=== PATIENT | male | born 1950 | race Caucasian/White ===

== ENCOUNTER 2024-11-14 23:00 | Observation (INO) | payer MEDICARE, SELFPAY ==
[2024-11-14 21:13] VITALS: BP 144/81
[2024-11-14 21:27] LABS: Hematocrit 39.4 % (39.0-52.0); Hemoglobin 13.7 g/dL (13.0-18.0); Mean Corp Hgb Conc. 34.8 g/dL (33.0-37.0); Mean Corpuscular Volume 90.6 fL (80.0-94.0); Nucleated Red Blood Cells % 0 % (-); Platelet Count 188 10^3/uL (130-400); Red Cell Dist. Width 11.9 % (11.5-14.5)
[2024-11-14 21:29] VITALS: BMI 28.6
[2024-11-14 21:33] VITALS: BP 129/78
[2024-11-14 21:47] LABS: ALT (SGPT) 34 U/L (0-50); AST (SGOT) 24 U/L (17-59); Albumin 4.0 g/dl (3.5-5.0); Alkaline Phosphatase 51 U/L (38-126); Blood Urea Nitrogen 14 mg/dl (9-20); Calcium 9.1 mg/dl (8.4-10.2); Carbon Dioxide 25 mmol/L (22-30); Chloride 104 mmol/L (98-107); Estimated Creatinine Clearance 89 ml/min; Glucose 121 mg/dl (70-99); Potassium 3.8 mmol/L (3.5-5.1); Sodium 138 mmol/L (135-145); Total Protein 6.3 g/dl (6.3-8.2); eGFR > 60.00
[2024-11-14 21:59] LABS: Troponin I < 0.012 ng/ml
[2024-11-14 22:00] VITALS: BP 139/83
--- NOTE | 2024-11-14 22:27 | ED.GENMED ---
History of Present Illness
General
Chief Complaint: Fainting/Passed Out
Source: patient, spouse and ambulance crew
Exam Limitations: none
Time Seen by Provider: 11/14/24 21:57
Nursing documentation reviewed up to this point in time: agreed with
History of Present Illness
History of Present Illness:
74-year-old male with a past medical history of hypertension, hyperlipidemia, CAD status post stent who presents to the emergency room via EMS accompanied by his for evaluation of syncope. Patient reports that he spent the day golfing and
admits that he was not drinking much fluid today; he then went to spend some time with friends and was drinking alcohol and even had some THC infused beverage. This evening while he was sitting he says he began to feel lightheaded and tired�'almost
like I had to go to sleep.' His says that he became very pale and diaphoretic and had witnessed syncope. He subsequently had at least 2 additional episodes 1 of which happened with positional change and says that they had to lowered him
down to the ground to prevent fall. EMS was called to the scene. Per EMS patient hypotensive on arrival in the 80s systolic. He apparently had multiple episodes on the way to the hospital. Since arrival here patient says that he is been feeling
well and is asymptomatic�he did receive approximately 300 cc of fluid from EMS prior to arrival. He did not and does not have any associated chest pain, shortness of breath, abdominal/flank pain, headache. Denies any other acute complaints. He
says he did have a similar episode about a year ago where he passed out and fell down and hit his head requiring stitches�at that time it was attributed to his blood pressure medication and his dose was decreased. He is from [place], currently
visiting here�his planning specialist is in [place]. He has a history of CAD status post stenting.
Review of Systems
Review of Systems
All Other Systems: ROS reviewed and negative except as documented in HPI and ROS
Constitutional: Denies fever
Respiratory: Denies cough or trouble breathing
Cardiac: Reports diaphoresis and syncope; Denies chest pain or palpitations
ABD/GI: Denies abdominal pain or nausea
: Denies flank pain
Musculoskeletal: Denies neck pain or back pain
Neurological: Reports dizzy; Denies headache
Phy Exam
Physical Exam
Physical Exam:
General: Awake, alert, oriented x3; no acute distress
Head: Normocephalic, atraumatic
Eyes: Conjunctiva normal, pupils equal round reactive to light bilaterally
Throat: Airway intact, handling secretions
Neck: Trachea midline, supple without meningismus
Lungs: Clear to auscultation bilaterally, no wheezing, rales, rhonchi
Heart: Regular rate and rhythm, no murmurs, gallops, or rubs appreciated
Abd: Soft, non distended, nontender, no palpable masses
Neuro: Cranial nerves grossly intact, speech fluid, motor and sensory grossly intact
Skin: Warm and dry
Extremities: No edema in extremities, equal pulses in all extremities
Scores
Heart Failure Risk
Heart Failure Risk Score: Not Applicable
Heart Score for Chest Pain Patients
STEMI patient?: Not applicable
Withdrawal Assessment of Alcohol
Withdrawal Assessment Completed?: Not applicable
Course
Orders/Labs/Results
Orders:
Orders
11/14/24 21:10
Electrocardiogram (*1) Urgent
Reason for Study: Chest Pain
EKG- Treatment ONCE
11/14/24 21:15
Alcohol Urgent
Complete Blood Count/With Diff Urgent
Comprehensive Metabolic Panel Urgent
Troponin I Urgent
11/14/24 22:02
Add On- LAB Urgent
Tests Added?: ETOH level
11/14/24 22:25
Orthostatic VS- Treatment ONCE
0.9% Sodium Chloride 1000 ml [Nss] 1,000 ml IV BOLUS
Abnormal Lab Results
11/14/24
21:15
WBC 12.3 H 10^3/uL
(4.8-10.8)
RBC 4.35 L 10^6/uL
(4.70-6.10)
MCH 31.5 H pg
(27.0-31.0)
Absolute Neuts (auto) 7.2 H 10^3/uL
(1.4-6.5)
Absolute Lymphs (auto) 3.7 H 10^3/uL
(1.2-3.4)
Absolute Monos (auto) 1.0 H 10^3/uL
(0.1-0.6)
Glucose 121 H mg/dl
(70-99)
11/14/24 21:15
11/14/24 21:15
Vital Signs
Initial and Last Documented VS:
Initial Vital Signs
Temp Pulse Resp BP Pulse Ox
36.6 C 78 18 144/81 95
11/14/24 21:13 11/14/24 21:13 11/14/24 21:13 11/14/24 21:13 11/14/24 21:13
Last Documented Vital Signs
Temp Pulse Resp BP Pulse Ox
36.6 C 80 18 139/83 97
11/14/24 21:13 11/14/24 22:15 11/14/24 21:13 11/14/24 22:00 11/14/24 22:15
MDM/Problems Addressed
Differential Diagnosis Includes:
Vasovagal syncope, dehydration/alcohol related, arrhythmia, valvular disease
MDM/Problems Addressed:
74-year-old male presents after multiple syncopal events as described above. He did have some associated hypotension which improved with some fluids from EMS. He feels well here in the ER. Vitals and exam as above. EKG shows sinus rhythm with
sinus arrhythmia, no ectopy, no Brugada, no QT prolongation, no delta wave, not acutely ischemic. Labs were sent off including CBC and CMP�CBC shows marginal leukocytosis, CMP no clinically significant abnormalities. Troponin undetectable.
Alcohol level 10. Suspect that this is likely combination of dehydration/alcohol use leading to repeated syncopal events however with multiple episodes, known cardiac history and associated hypotension I do think he should be observed
overnight�discussed case with hospitalist for admission.
Chronic conditions affecting care:
CAD
*Pulse Oximetry
SaO2: 97
Oxygen Mode of Delivery: Room air
Patient hypoxic: no (97%)
*EKG
Interpreted by ED Provider?: Yes
Heart Rate: 82
Rate: normal
Rhythm: sinus and sinus arrhythmia
[place]: normal axis
Interval: normal interval
QRS Pattern: normal QRS
Ischemia: no ischemia
*Critical Care Note
Total Time (30-74mins, 75-104mins- exclusive of procedures): Not Applicable
Data Reviewed
Source: patient, spouse and ambulance crew
Patient Management
Discussion with other providers: Hospitalist (Discussed with hospitalist)
Escalation/DeEscalation of care consider admission/obs:
Admission indicated
ED Attending Note
-
Portions of this chart may have been created with voice recognition software.� Occasional wrong word or��sound alike� substitutions may have occurred due to the inherent limitations of voice recognition software.
Discharge Plan
Departure
Patient Disposition: Admit
Date of Disposition: 11/14/24
Time of Disposition: 22:27
Admit to doctor: [facility]
Presentation/result/management discussed w/ accepting MD/DO: Hospitalist
Discharge Problem:
Syncope
Prescriptions:
No Action
lisinopril 10 mg Tablet
PO DAILY
Patient Comments:
pt is unsure of exact dose fo this med
aspirin 81 mg Tablet
81 mg PO DAILY
rosuvastatin 40 mg Tablet
PO DAILY
Patient Comments:
pt is unsure of exact dose
metoprolol tartrate 25 mg Tablet
PO
Patient Comments:
pt is unsure of exact dose and how often he takes this med
Repatha Syringe
SC .[id number]
Patient Comments:
unsure of exact med dose
ezetimibe [Zetia] 10 mg Tablet
PO DAILY
Patient Comments:
pt is unsure fo exact dose
Interventions
Interventions:
*Risk Screen - Suicide Last Done: 11/14/24 21:29
*General Assessment Last Done: 11/14/24 21:29
*Neglect/Abuse Screening Last Done: 11/14/24 21:29
*ED- Fall Risk Assessment Last Done: 11/14/24 21:29
*ED COVID-19 Vaccine History Last Done: 11/14/24 21:29
Discharge Date and Time
Print Language: SPANISH
[2024-11-14 22:48] VITALS: BP 138/93; BP 145/85; BP 156/98; PULSE 80; PULSE 85; PULSE 90
[2024-11-14] MEDS: NSS 1000 IV (22:54)
--- NOTE | 2024-11-14 22:54 | HPS.HSE ---
Family Physician
-
Family Physician:
Chief Complaint
-
Hypotension
History of Present Illness
74-year-old male came by EMS for reported syncopal episode x 3. It was reported he spent the day golfing was not drinking much fluid he then went out with some friends was drinking alcohol and had a THC infused beverage called Chris's remedy which
contains 10 mg of THC and 2 mg of CBD per shot he had 5 shots of this. It is noted to cause orthostatic hypotension. He reports feeling lightheaded and tired like he was going to go to sleep when he became pale diaphoretic and had witnessed
syncope by his with a total of 3 episodes. He also reports he had 4 ounce of vodka with ice he typically drinks 8 ounce vodka daily per EMS patient was hypotensive on arrival 80 systolic had multiple episodes of syncope on the way to the
hospital. He received 300 cc of IV fluid by EMS has current blood pressure of 139/83. Patient reports he is visiting from [place] he has past medical history of CAD/stent 2000, HTN, HLD, alcohol use disorder
Medical History
Past Medical History
Past Medical History: Reports Other
Additional Past Medical History:
CAD/stent 2000
HTN
HLD,
alcohol use disorder
Past Surgical History: Reports None and Other
Additional Past Surgical History:
Cardiac cath times 03/2000
Social History
Tobacco: Non-smoker
Alcohol: Daily (8 ounces of vodka daily with ice)
Personal:
Living: With Family ()
Employment: Retired
Family History
Family History: Not pertinent
Allergies / Home Medications
Allergies reflects when Allergies were last updated in [employer].
Home Medications with original date entered in [employer]
Allergy/Medication List:
Allergies
Allergy/AdvReac Type Severity Reaction Status Date / Time
penicillin G Allergy Pharmacy Verified 11/14/24 21:09
to Review
Penicillins Allergy Rash Verified 11/14/24 21:09
Home Medications
Repatha Syringe SC .[id number] 11/14/24
aspirin 81 mg tablet 81 mg PO DAILY 11/14/24
ezetimibe 10 mg tablet (Zetia) mg PO DAILY 11/14/24
lisinopril 10 mg tablet mg PO DAILY 11/14/24
metoprolol tartrate 25 mg tablet mg PO 11/14/24
rosuvastatin 40 mg tablet mg PO DAILY 11/14/24
Review of Systems
-
History Source: Patient and Family ( at bedside)
A 12 point ROS was completed and negative except as noted: Yes
Constitutional: Denies Fever or Chills
EENT: Denies Sore Throat or Runny Nose
Respiratory: Denies Cough or Trouble Breathing
Cardiac: Reports Syncope; Denies Chest Pain, Diaphoresis or Palpitations
Abdomen/GI: Denies Abdominal Pain, Nausea, Vomiting, Diarrhea or Constipated
: Denies Dysuria, Frequency, Flank Pain, Incontinence, Difficulty Voiding or Urgency
Musculoskeletal: Denies Joint Pain or Edema
Skin: Denies Itching or Rash
Neurological: Denies Dizzy, Headache or Weakness
Endocrine: Reports No Symptoms
Hematologic/Lymphatic: Reports No Symptoms
Psych: Reports Calm
Physical Exam
Vital Signs
Vital Signs
Temp Pulse Resp BP Pulse Ox
97.9 F 80 18 139/83 97
11/14/24 21:13 11/14/24 22:15 11/14/24 21:13 11/14/24 22:00 11/14/24 22:33
Physical Exam
General: Comfortable and Conversant; No Pain, Fever or Chills
HEENT: NormoCephalic, Anicteric, Moist mucous membranes, PERRLA, [place] Conjunctivae and No Ptosis
Respiratory: Clear; No Wheezes, Rales or Rhonchi
Cardiac: S1/S2 and Regular Rhythm; No Murmur, Rub, Gallop or Peripheral Edema
Breast: Deferred by me
GI: Soft, Non Tender, Non Distended, Normal Bowel Sounds and No Hepatosplenomegaly
Rectal: Deferred by Provider
Genito-urinary: Deferred by me
Musculoskeletal: No Clubbing, No Cyanosis and No Edema
Skin: Warm and Dry; No Rash
Neuro: AO x 3, No Motor Deficits, Nonfocal/grossly intact, Cranial Nerves Intact and No Sensory Deficits; No Slurred Speech, Facial Droop, Tremors or Sedated
Psych: Calm
Laboratory Results
-
11/14/24 21:15
11/14/24 21:15
Laboratory Results
Total Bilirubin 1.0 mg/dl (0.2-1.3) 11/14/24 21:15
AST 24 U/L (17-59) 11/14/24 21:15
ALT 34 U/L (0-50) 11/14/24 21:15
Alkaline Phosphatase 51 U/L (38-126) 11/14/24 21:15
Troponin I < 0.012 ng/ml 11/14/24 21:15
Data Reviewed
-
Lab Data: Labs Reviewed by me
Impression/Plan
-
Impression/plan:
Observation telemetry
#Syncope likely related to hypotension from accidental overdose THC/CBD/HTN
Reported 3 episodes of syncope by with diaphoresis and hypotension by EMS 80s systolic
Patient reportedly tried Chris's remedy which contained 10 mg of THC and 2 mg of CBD per shot he had total of 5 shots totaling 60 mg of THC and 10 mg of CBD which causes euphoria and postural hypotension
-BP currently stable 139/83 post 1300 cc IV fluid
- Monitor on telemetry
- Orthostatic vitals
- Alcohol 10
- Check UDS
-IV NSS 100 cc/h
- Hold metoprolol tartrate 25 mg daily, lisinopril 10 mg daily
#Daily alcohol use disorder
Patient drinks 8 ounces of vodka daily
MSAs screen per protocol
-IV thiamine, IV folate
-Had 1 drink of vodka 4 ounce this afternoon
#HLD
Continue rosuvastatin 40 mg daily, Zetia 10 mg daily
Patient takes Repatha
#CAD status post stent 2000
Hold current beta-alexy due to hypotension
-Continue aspirin 81 mg daily
-Continue Zetia and statin patient is also on Repatha
DVT prophylaxis
SCDs
Full code
[2024-11-14 23:00] VITALS: BP 134/84
[2024-11-14 23:18] VITALS: BP 129/89
--- NOTE | 2024-11-14 23:25 | W.PN.UPDATE ---
Update Note
Progress Note Update
This is an addendum to H&P written by Tiff Ruiz on 11/14/2024. �Patient seen and examined independently with SALT GRINDER.
74-year-old male past medical history of hypertension, hyperlipidemia, CAD status post stent presenting for syncope after spending the day golfing, with decreased p.o. intake and drinking alcohol and 60 mg THC infused beverage and 10 ml CBD . �[place]
lightheaded today and pale and diaphoretic with witnessed syncope. �Had 2 additional episodes later. �Had a similar episode a year ago attributed to blood pressure medication which dose was decreased.
Vital signs normal.
Labs showed leukocytosis. �EKG shows sinus rhythm with sinus arrhythmia. �Alcohol level 10.
Patient with syncopal episodes secondary to hypovolemia/alcohol use and Marijuana use.�
Telemetry monitoring. �1 L IV fluids given here. Continue IV fluids.�UDS pending. �Check orthostatics. Alcohol withdrawal protocol.�
[2024-11-15] VITALS (9 sets, daily range): BP systolic 106–146; BP diastolic 61–85; PULSE 62–80; BMI 28.6
[2024-11-15] MEDS: NSS 1000 IV (02:25)
[2024-11-15 07:28] LABS: Hematocrit 38.7 % (39.0-52.0); Hemoglobin 13.2 g/dL (13.0-18.0); Mean Corp Hgb Conc. 34.1 g/dL (33.0-37.0); Mean Corpuscular Volume 89.6 fL (80.0-94.0); Nucleated Red Blood Cells % 0 % (-); Platelet Count 184 10^3/uL (130-400); Red Cell Dist. Width 12.1 % (11.5-14.5)
[2024-11-15 07:52] LABS: Blood Urea Nitrogen 11 mg/dl (9-20); Calcium 8.8 mg/dl (8.4-10.2); Carbon Dioxide 26 mmol/L (22-30); Chloride 109 mmol/L (98-107); Estimated Creatinine Clearance 111 ml/min; Glucose 111 mg/dl (70-99); Potassium 4.1 mmol/L (3.5-5.1); Sodium 139 mmol/L (135-145); eGFR > 60.00
[2024-11-15] MEDS: CRESTOR 40 MG PO (08:08)
[2024-11-15] MEDS: ZETIA 10 MG PO (08:09)
[2024-11-15] MEDS: ASPIR LOW (ENTERIC COATED) 81 MG PO (08:09)
--- NOTE | 2024-11-15 10:12 | W.PN.UPDATE ---
Update Note
Progress Note Update
I saw and evaluated the patient. I reviewed the resident�s note and agree with findings and plan as documented in the resident�s note.
Denies chest pain or shortness of breath.
Gen: NAD, AAOx3.
Eyes: EOMI, PERRLA, no scleral icterus.
Neck: supple.
CV: RRR, +S1/S2, no m/r/g.
Resp: CTAB, no rales, wheezes, or rhonchi.
Abd: +BS, soft, NT, ND
Skin: No rashes.
Neuro: CN 2-12 intact, non-focal.
Psych: Normal mood and affect.
Lab Results
11/14/24 11/14/24 11/15/24
21:15 23:44 06:31
WBC 12.3 H 8.7
RBC 4.35 L 4.32 L
Hgb 13.7 13.2
Hct 39.4 38.7 L
MCV 90.6 89.6
MCH 31.5 H 30.6
MCHC 34.8 34.1
RDW 11.9 12.1
Plt Count 188 184
MPV 9.3 9.8
Abs Immat Gran (auto) 0.0 0.0
Absolute Neuts (auto) 7.2 H 4.6
Absolute Lymphs (auto) 3.7 H 3.0
Absolute Monos (auto) 1.0 H 0.8 H
Absolute Eos (auto) 0.3 0.3
Absolute Basos (auto) 0.1 0.1
Immature Gran % 0.3 0.2
Neutrophils % 58.8 53.2
Lymphocytes % 29.9 34.0
Monocytes % 8.3 8.6
Eosinophils % 2.1 3.0
Basophils % 0.6 1.0
Nucleated RBC % 0 0
Sodium 138 139
Potassium 3.8 4.1
Chloride 104 109 H
Carbon Dioxide 25 26
BUN 14 11
Creatinine 0.9 0.7
Estimated Creat Clear 89 111
eGFR > 60.00 > 60.00
Glucose 121 H 111 H
Calcium 9.1 8.8
Total Bilirubin 1.0
AST 24
ALT 34
Alkaline Phosphatase 51
Troponin I < 0.012
Total Protein 6.3
Albumin 4.0
Urine Opiates Screen Negative
Ur Buprenorphine Negative
Ur Oxycodone Screen Negative
Urine Methadone Screen Negative
Ur Barbiturates Screen Negative
Ur Tricyclics Screen Negative
Ur Phencyclidine Scrn Negative
Ur Amphetamines Screen Negative
U Methamphetamines Scrn Negative
U Benzodiazepines Scrn Negative
Urine Cocaine Screen Negative
U Marijuana (THC) Screen Positive H
Alcohol, Quantitative 10
Syncopal episodes:
-due to hypovolemia as well as alcohol and marijuana use, underlying alcohol abuse disorder (drinks 8oz vodka daily)
-orthostatic vital signs positive by heart rate but blood pressure stable
-tele showed SR
-s/p IVFs
-cont thiamine/folate
Other problems:
HLD: cont statin
CAD s/p stent: resume BB, cont ASA/statin
FULL/SCDs
Medically cleared for discharge.
Total time spent on d/c = 31 min. This included today's physical exam, progress note, review of laboratory and diagnostic data, preparation of discharge documents and prescriptions, and discussions about the pt's hospital course and discharge plan
with the patient and other medical coder involved in the patient's care.
--- NOTE | 2024-11-15 10:56 | W.PN.HOSP.TC ---
Today's Communication/Plan
-
Medically stable for discharge
Assessment / Plan
Assessment / Plan
Mr. Simpson is a 74-year-old male with CAD s/p stent 2001, hypertension, hyperlipidemia, and alcohol abuse disorder that presented to the ED on 10/27:21 syncopal episodes witnessed by his . In the ED he received IV fluids and had an alcohol level
of 10. He was admitted on telemetry for further evaluation management. On 11/15, he reported feeling just like himself and had no symptoms nor hypotension. His fluids were DC'd and he continued to do well. As such, he was medically stable for
discharge.
#Syncopal episodes
#Alcohol abuse disorder
Likely due to hypovolemia ISO alcohol and marijuana use. He drinks about 8 ounce of vodka daily. He did not have any withdrawal symptoms in the hospital. His orthostatic vital signs were positive by HR, but BP was stable and he was asymptomatic.
- Maintained on telemetry: In sinus rhythm
- IV fluids DC'd
- Continue thiamine/folate as needed
#Hyperlipidemia
- Continue Zetia and rosuvastatin daily
#Essential hypertension
- Continue lisinopril daily
#CAD s/p stent
- Continue aspirin 81 mg p.o. daily
- Continue rosuvastatin daily
- Continue metoprolol to heart rate daily
DVT prophylaxis: SCDs
CODE STATUS: Full code
Anticipated Discharge: Today
Subjective/Interval History
-
Date of Service: November 15, 2024
-This morning, he is sitting up in bed about to eat breakfast. He says that he feels 'great 'and has no complaints. I DC'd his IV fluids.
Objective Data
-
Labs:
Laboratory Results
11/15/24
06:31
WBC 8.7
Hgb 13.2
Hct 38.7 L
Plt Count 184
Sodium 139
Potassium 4.1
Chloride 109 H
Carbon Dioxide 26
BUN 11
Creatinine 0.7
Glucose 111 H
Calcium 8.8
Vital Signs:
Vital Signs
Temp Pulse Resp BP Pulse Ox
98.4 F 64 16 123/73 95
11/15/24 07:00 11/15/24 07:00 11/15/24 07:00 11/15/24 07:00 11/15/24 07:00
I&O
11/14/24 11/15/24 11/16/24
06:59 06:59 06:59
Intake Total 960 / 960
Output Total 900 / 1350 450 / 450
Balance -900 / -390 510 / 510
Review of Systems
-
History Source: Patient
All other systems: Reviewed and negative
Physical Exam
-
General: Well Developed, Well Nourished, No Apparent Distress, Comfortable and Conversant
HEENT: Normocephalic, Atraumatic and Moist Mucous Membranes
Respiratory: Clear to Auscultation and Non Labored Respirations
Cardiac: Regular Rhythm and S1/S2
GI: Soft, Nontender and Nondistended
Musculoskeletal: No Cyanosis and No Edema
Skin: Warm and Dry
Neuro: AO x 3
Psych: Calm and Intact Judgement/Insight
--- NOTE | 2024-11-15 11:03 | W.DCSUMMARY ---
Discharge Summary
Discharge Data
Date of Admission: 11/14/24
Date of Discharge: 11/15/24
-
Pending Results: No
Hospital Course
Discharging Physician : Terese Monzon MD/ISAI
Disposition : Home
Principal Discharge diagnosis : Syncopal episode secondary to hypovolemia ISO marijuana use and alcohol abuse disorder
Chronic Discharge diagnosis : Alcohol abuse disorder
Hospital Course : Mr. Simpson is a 74-year-old male with CAD s/p stent 2001, hypertension, hyperlipidemia, and alcohol abuse disorder that presented to the ED on 11/14 for 3 syncopal episodes witnessed by his . These occurred after he spent the
day golfing without drinking much nonalcoholic fluid. That day, he reported drinking about 4 ounces of vodka with ice (he typically drinks about 8 ounces of vodka daily) and had a THC infused beverage which contains 10 mg of THC and 2 mg of CBD per
shot. He had 5 shots of this beverage. Of note, the strength is noted to cause orthostatic hypotension. In the ED he received IV fluid bolus, maintenance IV fluids, had an alcohol level of 10, and UDS was positive for marijuana and THC. He was
admitted on telemetry for further evaluation management. He did not have a syncopal episode while admitted and was in sinus rhythm throughout. His orthostatic vital signs were positive for heart rate but stable for blood pressure and he was
asymptomatic. On 11/15, he reported feeling just like himself/great and had no symptoms nor hypotension. His fluids were DC'd and he continued to do well. As such, he was deemed medically stable for discharge.
Discharge Plan
-
Patient Disposition: Home (Routine Discharge)
Discharge Diagnosis/Procedures: Syncope, multifactorial, due to dehydration/alcohol/marijuana
Condition: Good
Diet: Low Cholesterol and 2 Gram Sodium
Activity: As tolerated
Driving Restrictions: As prior to admission
Referrals:
JOBY GOLDSTEIN [Other]
Prescriptions:
New
thiamine HCl (vitamin B1) 100 mg capsule
100 mg PO DAILY Qty: 1 0RF
folic acid 1 mg tablet
1 mg PO DAILY Qty: 1 0RF
Continued
lisinopril 10 mg Tablet
PO DAILY
Patient Comments:
pt is unsure of exact dose fo this med
aspirin 81 mg Tablet
81 mg PO DAILY
rosuvastatin 40 mg Tablet
PO DAILY
Patient Comments:
pt is unsure of exact dose
metoprolol tartrate 25 mg Tablet
PO
Patient Comments:
pt is unsure of exact dose and how often he takes this med
Repatha Syringe
SC .[id number]
Patient Comments:
unsure of exact med dose
ezetimibe [Zetia] 10 mg Tablet
PO DAILY
Patient Comments:
pt is unsure fo exact dose
Discharge Orders:
Discharge Patient (As Directed); Ordered 11/15/24
Ordered By: Artie Choudhury
Discharge Date and Time
Print Language: COMORAN
--- NOTE | 2024-11-15 11:17 | CM ---
Addendum entered by Bailey Fitzgreald RN 11/15/24 13:25:
PLAN Home with no needs
Original Note:
Alert awake oriented patient who lives with his Cate in [place] 1 story home with 0 steps to enter.He was visiting locally and needed medical attention in ED. He is independent in driving and all ADLs. No adaptive devices.Offered VN he
declined need.MARVIN letter explained signed on chart.
No VN/SNF hx
Pharmacy local [facility]
PCP DR Ge Piper in [place]
PLAN Home with needs ,
== END 2024-11-15 13:14 | disposition home or self-care (01) ==
LOC: 4 EAST ACU 23:00
PROVIDERS: Clinical Nurse Specialist Family Health; Emergency Medicine; ADMITTING PHYSICIAN Hospitalist; ATTENDING PHYSICIAN Internal Medicine; EMERGENCY PHYSICIAN Emergency Medicine
DX: E86.1 Hypovolemia (principal); E78.5 Hyperlipidemia, unspecified; I10 Essential (primary) hypertension; I25.10 Atherosclerotic heart disease of native coronary artery without angina pectoris; F10.10 Alcohol abuse, uncomplicated; Z79.82 Long term (current) use of aspirin; Z79.899 Other long term (current) drug therapy; Z95.5 Presence of coronary angioplasty implant and graft
CPT/HCPCS: 80048; 80053; 80306; 82077; 84484; 85025; 93005; 96360; 96361; 99285; G0378